=== PATIENT | female | born 1960 | race Caucasian/White ===

== ENCOUNTER → 2020-10-15 08:48 | Outpatient (CLI) | payer SELFPAY ==
--- NOTE | 2020-10-15 09:01 | CT_ITS ---
STUDY: CT ABDOMEN AND PELVIS WITHOUT CONTRAST REASON FOR EXAM: Female, 59 years old. UTI RADIATION DOSAGE (If Supplied By Facility): CTDIvol = ( 7.87 ) mGy, DLP = ( 353.88 ) mGycm TECHNIQUE: Transaxial images were obtained from the dome of the diaphragm to the symphysis pubis without oral contrast, and without intravenous contrast. Sagittal and coronal images were reconstructed. Individualized dose optimization techniques were used for this CT. COMPARISON: None. FINDINGS: The visualized lung bases are unremarkable. The visualized portions of the heart are within normal limits. Normal liver. There are surgical clips in the gallbladder fossa consistent with a prior cholecystectomy. Normal spleen. Normal pancreas. Normal bilateral adrenal glands. Horseshoe kidney. Along the mid and inferior left kidney, there are several calculi measuring up to 7-8 mm. No hydronephrosis. Well-defined cystic structure of the right kidney extends to the central kidney and appears to be contiguous with the right renal collecting system (image 58 series 601) and may represent a calyceal diverticulum versus simple cyst. No ureter calculi. Normal visualized stomach. Normal small intestine. There are multiple colonic diverticula consistent with diverticulosis. The appendix is visualized and appears normal. There is diffuse atherosclerotic calcification of the abdominal aorta, without a demonstrated aneurysm. Normal inferior vena cava. Normal retroperitoneum. Normal urinary bladder. There is absence of the uterus consistent with a prior hysterectomy. There is a small umbilical hernia containing fat. Normal osseous structures. CT/Abdomen/Pelvis without Cont IMPRESSION: 1. Horseshoe kidney. Left moiety nephrolithiasis. 2. Simple cyst or calyceal diverticulum of the right kidney. 3. Periumbilical fat-containing hernia. Electronically Signed: Alvin Maier MD ([place]) at 17:04 EDT , Service support ,
== END ==
PROVIDERS: PCP Family Medicine; Visit Provider Urology
DX: N20.0 Calculus of kidney (principal); N39.0 Urinary tract infection, site not specified
CPT/HCPCS: 74176